=== PATIENT | female | born 1975 | race Caucasian/White ===

== ENCOUNTER 2024-12-20 05:03 | Emergency (ER) | payer BC, MEDICAID, OTHER ==
[2024-12-20] MEDS: Fluorescein 1 MG Ophth Strip EYELF ONE (05:39)
[2024-12-20] MEDS: Tetracaine HCl/PF 0.5% 4 ML Bottle EYELF ONE (05:39)
[2024-12-20 05:40] VITALS: BP 130/78; PULSE 94
[2024-12-20] MEDS: Polymyxin B/Trimethoprim 10 ML Bottle EYELF ONE (06:04)
== END 2024-12-20 06:10 | disposition home or self-care (01) ==
LOC: VM.ED 05:03
DX: H10.32 Unspecified acute conjunctivitis, left eye (principal); K21.9 Gastro-esophageal reflux disease without esophagitis; Z79.899 Other long term (current) drug therapy; Z90.49 Acquired absence of other specified parts of digestive tract; Z79.1 Long term (current) use of non-steroidal anti-inflammatories (NSAID)
CPT/HCPCS: 99282; A9270; J3490